=== PATIENT | male | born 1955 | race Caucasian/White ===

== ENCOUNTER 2017-09-28 14:06 | Inpatient (IN) | payer MEDICARE ==
[~2017-09-28] VITALS: Ht 180.3 cm; Wt 93.0 kg
--- NOTE | ~2017-09-28 | PR ---
[place], [place] PROGRESS NOTE NAME: MARIA A OJEDA UNIT #: [id number] ROOM: 310 DOCTOR: CHARLIE ERAZO MD BIRTHDATE: [birth year] DOS: 10/01/2017 CHIEF COMPLAINT: "Morning, is it breakfast?" SUMMARY OF THE VISIT: The patient was interviewed as he continued to pace up and down the jordan. This has been an ongoing issue with him. He did not make eye contact. He remains disheveled and unkempt. His responses tended to be very short and simple and at times avoidant from the questions asked. There is an air of paranoia and suspiciousness and he does not always answer the question. Staff report similar behavior and he is rather avoidant of [id number]-[id number] contact. MENTAL STATUS: He is alert and oriented to person, place, not necessarily time. Mood does seem to be fairly euthymic. Affect appropriate. There is no harlan or hypomania. There is gross psychosis present. Short term memory, long-term memory and intermediate for the most part are intact. PLAN: I will maintain his current dose of Navane as well as the Cogentin. I need to find out when he received his last Invega injection to determine whether or not we need to reload him currently. We will continue to attempt to engage him in individual and tao milieu activity with the plan to return to the detention when stable. CHARLIE ERAZO MD CM:PNTRANS [id number] CHARLIE ERAZO MD 10/01/17 0953 interface
--- NOTE | ~2017-09-28 | PR ---
[place], [place] PROGRESS NOTE NAME: MARIA A OJEDA UNIT #: [id number] ROOM: 310 DOCTOR: CHARLIE ERAZO MD BIRTHDATE: [birth year] DOS: 10/02/2017 CHIEF COMPLAINT: "I think I am feeling better." SUMMARY OF THE VISIT: The patient was interviewed actually in the dining area where he was sitting for a change. He continues, however, throughout the day to walk up and down the hallway. When asked if he was feeling any less restless, he did nod in approval. He reports that he is tolerating the current medication regimen well and is anxious to be able to leave the hospital shortly. MENTAL STATUS: He is alert and oriented to person, place, very approximate to time. Mood does seem to be trending towards euthymia. Affect is more appropriate. There are no symptoms of harlan or hypomania. He remains somewhat delusional and paranoid, but does redirect. Memory for the most part is intact. PLAN: I will go ahead and increase the Cogentin from 1 mg twice a day to 1 mg 3 times a day to see if we can impact even more positively on his akathisia. We will maintain his Navane. We will load him with Invega Sustenna 234 mg and plan to return him to his [facility] environment when he is stable. CHARLIE ERAZO MD CM:PNTRANS [id number] CHARLIE ERAZO MD 10/02/17 0836 interface
--- NOTE | ~2017-09-28 | PR ---
[place], [place] PROGRESS NOTE NAME: MARIA A OJEDA UNIT #: [id number] ROOM: 312 DOCTOR: CHARLIE ERAZO MD BIRTHDATE: [birth year] DOS: 10/03/2017 CHIEF COMPLAINT: "Yeah, all you need to do is to call the snf and they will send somebody to pick me up." SUMMARY OF THE VISIT: The patient was interviewed as he continued to pace in the jordan. This has been his total presentation since he has been here as he continues to pace back and forth. He did stop long enough to engage in conversation with me and did report that he is feeling better. He still notes, however, a restless feeling that is lessening as I have adjusted the Cogentin. He is much more goal directed in his thinking and was not bizarre or paranoid and was able to actually engage in meaningful conversation with me. Other than the restlessness, he denies any other side effects. I see no sedation, somnolence, or any other extrapyramidal symptoms. There is no tardive dyskinesia noted. MENTAL STATUS: He is alert and oriented. Mood does seem to be trending towards euthymia. Affect is more appropriate. There is no symptom suggestive of harlan or hypomania. There are no overt auditory hallucinations or visual hallucinations. Memory for the most part is intact. PLAN: I will load him with Invega Sustenna 234 mg IM today. He will get a secondary shot then of 234 mg on 10/30/2017 post-discharge and then q. monthly. I will increase Cogentin from 1 mg 3 times a day to 2 mg twice a day. We will proceed with discharge when psychiatrically stable. CHARLIE ERAZO MD CM:PNTRANS 8 3 CHARLIE ERAZO MD 10/03/17911 interface
--- NOTE | ~2017-09-28 | WRIGHTHP ---
[place], [place] PATIENT HISTORY AND PHYSICAL EXAM NAME: MARIA A OJEDA UNIT #: [id number] ROOM: 310 DOCTOR: CHARLIE ERAZO MD BIRTHDATE: [birth year] DOS: 09/29/2017 INITIAL PSYCHIATRIC EVALUATION. CHIEF COMPLAINT: "Will you get me back to my longterm." HISTORY OF PRESENT ILLNESS: This is a 61-year-old white male who was sent here from [facility]. The patient apparently was living in a longterm in [place], [place] and receiving psychiatric services from [facility]. Per his report and the report in the chart, he has a rather lengthy history of schizophrenia. He did apparently elope the longterm and was found living in a [facility] [place] and taken to the Emergency Room at [facility]. Once there at the Emergency Room, the patient was found to be grossly psychotic. He was very delusional and paranoid additionally. He was rather disheveled and unkempt. His responses to the Emergency Room physicians were at times nonsensical. Because of his gross psychosis and his basic inability to meet his needs it was felt that a restabilization with medication was warranted and he was sent to the [facility] to rule out organic factors, to engage in individual and tao milieu activity and to restabilize on medication. PAST MEDICAL HISTORY: Remarkable for a lengthy history of schizophrenia. Apparently, the patient is receiving long acting Invega Sustenna and has been doing so for some time. He also has a history of hypertension, normocytic anemia, nicotine abuse. MENTAL STATUS: The patient is alert and oriented to person, place, approximate to time. His responses tended to be derailed. He would oftentimes began to answer appropriately and then would go off on a tangent. He talked in a whisper and at times was somewhat more garbled. He had a hard time standing still and even as he stood there talking to me, he shifted from foot to foot. Most of the time that I was on the unit, he is pacing up and down the hallways nonstop. He was not agitated during his conversation with me and was fairly goal directed with those periods of derailment noted. He did not seem to be responding to any type of unforeseen others. There was no symptom suggestive of hypomania or harlan. DIAGNOSES: Chronic paranoid, with acute exacerbation, rule out schizoaffective disorder. PLAN: I have already started him on Navane 10 mg twice a day. Nurses did report he did not sleep well last night, so I will increase this to 10 mg in the morning and 20 mg at bedtime. I will increase his Cogentin from 0.5 mg 3 times a day to 1 mg twice a day to try to lessen some of his akathisia. Routine screening examinations upon admission show him to have a very low vitamin D level of 11.7. I will augment with vitamin D replacement 50,000 International Units weekly. Because he is having some issues with sleep and is not the best historian, I will go ahead and start him on Remeron 15 mg at bedtime as a nonaddicting agent that will aid sleep. It will also help improve his appetite and stabilize his mood. We will attempt to engage him in individual and tao milieu activity with the ultimate plan to return back to his longterm in [place], [place] PATIENT HISTORY AND PHYSICAL EXAM NAME: MAIRA A OJEDA UNIT #: [id number] ROOM: 310 DOCTOR: CHARLIE ERAZO MD BIRTHDATE: [birth year] [place] when stable. CHARLIE ERAZO MD CM:HISPHYS:PATIENT HISTORY AND PHYSICAL EXAMINATION [phone] CHARLIE ERAZO MD 09/29/17 1002 interface
--- NOTE | ~2017-09-28 | DS ---
[place], [place] DISCHARGE SUMMARY NAME: MARIA A OJEDA UNIT #: [id number] ROOM: 312 DOCTOR: CHARLIE ERAZO MD BIRTHDATE: [birth year] DOS: 10/04/2017 CHIEF COMPLAINT: "Will you get me back to my care home." HISTORY OF PRESENT ILLNESS: This is a 61-year-old white male who was sent here from [facility]. The patient apparently was living in a care home in the [facility] and was receiving psychiatric services from [facility]. The patient has a lengthy history of schizophrenia and has been receiving Invega Sustenna for some time. Apparently, the patient eloped from the care home and was found in a [facility] [place] and from there, then taken to [place]. Once in the emergency room at [place], he was found to be very paranoid and delusional. He was very disheveled and unkempt. He was very nonsensical. It was felt that he would benefit from restabilization on medication before being sent back to his care home. He was admitted now to rule out organic factors and to restabilize. PAST MEDICAL HISTORY: Remarkable for the lengthy history of schizophrenia as well as hypertension, normocytic anemia and nicotine abuse. SUMMARY OF HOSPITAL COURSE: The patient was admitted to the unit where he was found to be grossly disheveled, unkempt and very delusional. He was started on Navane 10 mg twice daily, which was then increased to 10 mg in the morning and 20 mg at night. He did have marked akathisia, so his Cogentin was increased from 0.5 mg 3 times a day, ultimately to 2 mg twice a day. His vitamin D level on admission was low at 11.7, so he was started on vitamin D replacement 50,000 international units weekly. There was a definite depressive component to his symptoms, so he was started on Remeron 15 mg at bedtime. He was given Risperdal at first to make certain he did re-tolerate it and he did and was then subsequently loaded just before discharge with Invega Sustenna 234 mg IM. He tolerated these medicines well. There were no extrapyramidal symptoms, tardive dyskinesia or any other side effects. His psychosis cleared and he was able to engage more readily in normal conversation. He voiced willingness and readiness to return back to the care home. He was discharged then on October 04 to return back to the care home. He will have followup there by the physician of record medically and by [facility] for psychiatric followup. MENTAL STATUS AT DISCHARGE: The patient is alert and oriented. Mood was strongly trending towards euthymia. Affect was appropriate. There were no symptoms of harlan or hypomania. There were no overt auditory or visual hallucinations. No delusions, no paranoia. Memory was fairly intact. FINAL DIAGNOSIS: Schizoaffective disorder. PLAN: All of his prescriptions except the vitamin D have been e-scribed to his pharmacy. Vitamin D was printed and will be sent with him. Aftercare will be through [facility]. [place], [place] DISCHARGE SUMMARY NAME: MARIA A OJEDA UNIT #: [id number] ROOM: 312 DOCTOR: CHARLIE ERAZO MD BIRTHDATE: [birth year] CHARLIE ERAZO MD CM:DISCHARG CHARLIE ERAZO MD 10/04/1736 interface
[2017-09-28] MEDS ORDERED: INVEGA SUSTENN234 MG IM (16:32)
[2017-09-28] MEDS ORDERED: RISPERDAL3 M1 PO (16:34)
[2017-09-28] MEDS ORDERED: COGENTIN0.5 MG PO (16:35)
[2017-09-28] MEDS ORDERED: RAMIPRIL10 MG PO (16:37)
--- NOTE | 2017-09-28 18:11 | NUR ---
ADMISSION ORDER RECEIVED FROM DR. ERAZO. HOME MEDICATIONS VERIFIED WITH PHARMACY, GUARDIAN, AND ENGINEERING TECHNOLOGY INSTRUCTOR.
--- NOTE | 2017-09-28 22:00 | NUR ---
MARIA A OJEDA a 61 year old M admitted via ambulance from the ADMITTING as a VOLUNTARY admission BY GUARDIAN. Arrived on unit at 2200. ALLERGIES: HALDOL. Vital signs are: 98.2-70-17 123/81. The guardian provided verbal consent for the following forms with stated understanding: Authorization For The Release of Medical Information, Clothing List, Consent to Voluntary Admission and Hospitalization, Consent and Release Forms/Receipt of Rights, Acknowledgement of Advance Directive Information, Behavioral Health Consent Form, and Informed Consent of Medications. Admitted under the services of Dr. KACEY BRUMFIELD,[facility]. A search was conducted and hazardous articles were removed. Client was oriented to the unit. BRYANT RAJPUT
[2017-09-28 22:37] VITALS: BP 123/81
--- NOTE | 2017-09-28 23:34 | NUR ---
CALL PLACED TO RESIDENT STADIUM MANAGER TO UPDATE OF NEW PT ARRIVAL.
--- NOTE | 2017-09-29 01:00 | NUR ---
DR REENA BARNES ON UNIT TO ASSESS PT
--- NOTE | 2017-09-29 02:00 | NUR ---
DURING DR BARNES'S ASSESSMENT, LEFT LOWER LEG WAS NOTED TO BE EDEMATOUS. NO REDNESS NOTED. PT DENIED ANY DISCOMFORT OR PAIN. PT GUARDED WITH HIS LEGS. WHEN THE DR TRIED TO PULL HIS PANT LEGS UP TO ASSESS HIS LEGS THE PT WOULD PULL HIS PANT LEGS BACK DOWN AND TELL THE DR "MY LEGS ARE FINE". RINGS AND BRACELETS REMOVED FROM PT. NEW ORDER RECEIVED FOR AN ULTRASOUND.
--- NOTE | 2017-09-29 04:53 | NUR ---
24 HR chart check completed.
--- NOTE | 2017-09-29 05:45 | NUR ---
PT SLEPT APPROXIMATELY 4 HOURS THIS SHIFT. NO S/S OF DISTRESS NOTED. NO C/O PAIN.
[2017-09-29 06:27] LABS: BASO % 0.3 % (0.0-1.0); EOS # 0.1 10*3/uL (0.0-0.4); EOS % 3.2 % (1.0-4.0); HEMATOCRIT 35.1 % (42.0-52.0); HEMOGLOBIN 11.9 g/dl (14.0-18.0); LYMPH % 29.9 % (27.0-41.0); MEAN CELL VOLUME 86.9 fl (80.0-94.0); MEAN CORPUSCULAR HGB 29.5 pg (27.0-31.0); MEAN CORPUSCULAR HGB CONC 33.9 g/dl (33.0-37.0); MEAN PLATELET VOLUME 11.1 fl (9.6-12.3); MONO # 0.3 10*3/uL (0.1-1.0); MONO % 9.3 % (3.0-9.0); PLATELET COUNT AUTOMATED 196 10*3/uL (130-400); RED BLOOD COUNT 4.04 10*6/uL (4.50-5.90); RED CELL DISTRI WIDTH 15.9 % (0-14.5); WHITE BLOOD COUNT 3.5 10*3/uL (4.8-10.8)
[2017-09-29 07:29] LABS: CHLORIDE 110 mmol/L (98-107); POTASSIUM 4.6 mmol/L (3.5-5.1); SODIUM 143 mmol/L (136-145)
[2017-09-29 07:50] VITALS: BP 115/71
[2017-09-29 07:51] LABS: ALBUMIN 3.5 gm/dl (3.1-4.5); ALKALINE PHOSPHATASE 51 U/L (45-117); BUN 23 mg/dl (7-24); CHOLESTEROL 133 mg/dL (<200); CREATININE 1.15 mg/dL (0.70-1.30); HDL CHOLESTEROL 69 mg/dl (40-60); LDL CHOLESTEROL 54 mg/dL (9-159); SGOT/AST 16 IU/L (3-35); SGPT/ALT 19 U/L (12-78); TOTAL PROTEIN 6.9 gm/dL (6.4-8.2); TRIGLYCERIDES 49 mg/dl (<150); VLDL CHOLESTEROL 10 mg/dL (6-40)
--- NOTE | 2017-09-29 10:22 | NUR ---
LIBERTY rec'd pc back from CORA Stevens, who states pt. to retun to grp. home.
--- NOTE | 2017-09-29 11:49 | NUR ---
DR. MARTINES AND DR. ESCOBAR ON UNIT TO SEE PT AT THIS TIME, MADE AWARE PT REFUSED ULTRASOUND TO LLE.
--- NOTE | 2017-09-29 15:30 | NUR ---
PT IS ALERT AND ORIENTED TO PERSON, PLACE AND TIME. MEMORY APPEARS INTACT. RESPIRATIONS EASY ON ROOM AIR. MOOD IS ANGRY/IRRITABLE AT TIMES. AFFECT IS FLAT. SPEECH IS SLOW BUT COHERENT, ABLE TO MAKE NEEDS KNOWN. PT DENIES HALLUCINATIONS, NO RESPONSE TO INTERNAL STIMULI NOTED. PT DENIES SI/HI. PT DISPLAYS HYPOMANIC BEHAVIOR, PACING HALLWAYS CONTINUALLY THROUGHOUT THE SHIFT. STAFF HAS ATTEMPTED TO ENGAGE PT IN CONVERSATION, PT GIVES SHORT ONE TO TWO WORD ANSWERS OR STATES "WELL THAT'S A STUPID QUESTION". MEDICATION COMPLIANT WITHOUT DIFFICULTY. PT IS AMBULATORY WITH STEADY GAIT, INDEPENDENT WITH ADLS, SHOWERED AND SHAVED THIS AM WITH SUPERVISION FOR SHAVING, CONTINENT OF BOWEL AND BLADDER. DISPLAYS GOOD APPETITE WITH ADEQUATE FLUID INTAKE. Q15 MIN SAFETY CHECKS MAINTAINED, REFER TO [facility] FLOWSHEET FOR SPECIFIC MONITORING.
--- NOTE | 2017-09-29 18:54 | NUR ---
SHIFT CHART CHECK COMPLETED. UNABLE TO OBTAIN URINE SAMPLE THIS SHIFT, PT REFUSES TO PROVIDE.
[2017-09-29 20:00] VITALS: BP 100/62
--- NOTE | 2017-09-30 00:15 | NUR ---
24 HR chart check completed.
--- NOTE | 2017-09-30 06:45 | NUR ---
PT HAS BEEN OBSERVED ON Q 15 MIN CHECKS & HAS SLEPT QUIETLY PAST 2215.
[2017-09-30 07:46] VITALS: BP 102/66
--- NOTE | 2017-09-30 07:55 | NUR ---
PT PROVIDED WITH URINE SPECIMEN CUP, PT STATES HE WILL PROVIDE URINE SAMPLE WHEN HE HAS TO GO.
--- NOTE | 2017-09-30 09:41 | NUR ---
URINALYSIS OBTAINED VIA CLEAN CATCH AT THIS TIME, LABELED AND SENT TO LAB.
[2017-09-30 09:48] LABS: BILIRUBIN NEGATIVE (NEGATIVE); BLOOD NEGATIVE (NEGATIVE); CLARITY CLEAR (CLEAR); COLOR YELLOW (YELLOW); GLUCOSE NEGATIVE (NEGATIVE); KETONE NEGATIVE (NEGATIVE); LEUKO ESTERASE NEGATIVE (NEGATIVE); NITRITE NEGATIVE (NEGATIVE); SPECIFIC GRAVITY <= 1.005 (1.005-1.030); UROBILINOGEN 0.2 E.U./dl (0.2-1.0)
--- NOTE | 2017-09-30 10:10 | NUR ---
DR. ALAN AND DR. ESCOBAR ON UNIT TO SEE PT AT THIS TIME.
--- NOTE | 2017-09-30 15:28 | NUR ---
PT IS ALERT AND ORIENTED TO PERSON, PLACE, TIME. UNSURE OF ORIENTATION TO SITUATION PT DOES NOT ENGAGE IN CONVERSATION WITH STAFF AND WHEN PROMPTED GIVES SHORT ONE WORD RESPONSES. MEMORY APPEARS TO BE INTACT. RESPIRATIONS EASY ON ROOM AIR. MOOD IS LABILE, AFFECT IS FLAT. SPEECH IS SOFT, SLURRED/GARBLED AT TIMES, ABLE TO VERBALIZE NEEDS WITHOUT DIFFICULTY. PT DENIES SI/HI. PT NOTED TO BE RESPONDING TO INTERNAL STIMULI, TALKING TO UNSEEN OTHERS, CONVERSATION WITH UNSEEN OTHERS KEPT LOW IN VOLUME, DIFFICULT TO UNDERSTAND WHAT IS BEING SAID BY THE PT AND PT DOES NOT WISH TO ELABORATE. PT NOTED TO BE AGITATED THIS MORNING IN RESPONSE TO AUDITORY HALLUCINATIONS/DELUSIONS, PT DID NOT WISH TO DISCUSS WITH STAFF, PT WAS ABLE TO CALM SELF WITHOUT NEED FOR PRN INTERVENTION. PT IS AMBULATORY WITH STEADY GAIT, INDEPENDENT WITH ADLS, SHOWERED THIS AM, CONTINENT OF BOWEL AND BLADDER, FEEDS SELF, GOOD APPETITE WITH ADEQUATE FLUID INTAKE. NO DISTRESS NOTED. Q15 MIN SAFETY CHECKS MAINTAINED, REFER TO [facility] FLOWSHEET FOR SPECIFIC MONITORING.
--- NOTE | 2017-09-30 16:18 | NUR ---
PT ENTERED DINING ROOM WHILE PEERS WATCHING FOOTBALL GAME, THIS NURSE IN DAYROOM WITH PTS FOR SUPERVISION, THIS NURSE NOTED MARIA A TO BE EXHIBITING EVIDENCE OF AUDITORY, VISUAL AND TACTILE STIMULI. PT TALKING TO UNSEEN OTHERS UNDER HIS BREATH, RAPID EYE DARTING AND PICKING/GESTURING INTO THE AIR NOTED. PT REMAINED CALM, SAT DOWN AND WATCHED TV.
--- NOTE | 2017-09-30 16:48 | NUR ---
SHIFT CHART CHECK COMPLETED.
[2017-09-30 20:04] VITALS: BP 103/59
--- NOTE | 2017-09-30 21:09 | NUR ---
24 HR chart check completed.
--- NOTE | 2017-10-01 05:10 | NUR ---
PT HAS BEEN OBSERVED ON Q 15 MIN CHECKS & HAS SLEPT QUIETLY THROUGHOUT THE SHIFT PAST 2129.
[2017-10-01 08:09] VITALS: BP 106/70
--- NOTE | 2017-10-01 09:05 | NUR ---
PHYSICAL THERAPY PAtient is 100 % (I) all functional mobility throughout facility. No PT skills/needs. D/C PT at this time, patient agrees. Thank you for this referral. Mily Bobo,PT
--- NOTE | 2017-10-01 09:11 | NUR ---
Occupational Therapy referral received and screen completed this date [facility]. Patient was pacing the jordan with forward head/neck position, good balance and independent functional mobility. Patient admits to independence in all ADLs and no need for OT at this time. D/C OT at this time. Thank you for this referral. Ignacia Santoyo OTR/l
--- NOTE | 2017-10-01 11:22 | NUR ---
Goals/Exercise/Positive Thoughts & Affirmations Patient did not attend group. Patient paces halls and enters and exits activity room throughout group. Patient will not participate.
--- NOTE | 2017-10-01 14:09 | NUR ---
LIBERTY met with Bulmaro Brown and pt. pt. agree's to live elsewhere due to his home being "unlivable" at this time. LIBERTY met with Stephanie and Dr. Chamorro to discuss d/c plans. Dr. Chamorro does deem Santos "incompetent" at this time and needs a Guardian, which pt. according to Dr. Chamorro is in agreement with. LIBERTY called and notified Gisella Villa of the need to file Guardianship and will forward this request when LIBERTY receives Dr. Chamorro evaluation later today or tomorrow.
--- NOTE | 2017-10-01 14:13 | NUR ---
LIBERTY spoke with CORA Brown who states that there may be a Boarding Home in [place], [place] who may take pt. but needs to pass this request along to Rodney Meyers who will need to do the request for the boarding home, Rodney is pt's CM thru the waiver program. In the meanwhile, pt. ,may need a 30 day rehab until boarding home has opening or if there is an open by d/c, pt. will be admitted directly there from the [facility]. CM to talk with Rodney Staley today to make the referral for the baording home.
--- NOTE | 2017-10-01 14:33 | NUR ---
APS, Gisella Villa, is concerned that an Emergency Guardianship is not going to be filed and it is just going to be for Guardianship due to pt's hx of changing his mind. SW let her know that SW had talk with Dr. Chamorro about filing an Emergency Guardianship, but at this point in time Dr. Chamorro does not feel that an Emergcency Guardianship is warranted. SW will fax Guardianship paperwork to Gisella Villa if received before 3pm otherwise will be forwarded tomorrow.
--- NOTE | 2017-10-01 15:06 | NUR ---
Positive Self-Talk Patient did not attend group today. Patient walks the jordan,entering and exiting activity room but refuses to stay for group
--- NOTE | 2017-10-01 15:16 | NUR ---
pt continues to pace the unit, alert and oreinted x 1. pt. d/c plan to return to [facility]. home,. Dr. Mcclelland possibly by end of week.
--- NOTE | 2017-10-01 16:14 | NUR ---
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
[2017-10-01 19:46] VITALS: BP 121/70
--- NOTE | 2017-10-02 06:19 | NUR ---
24 HR chart check completed.
--- NOTE | 2017-10-02 06:23 | NUR ---
PT HAS BEEN OBSERVED ON Q 15 MIN CHECKS & HAS SLEPT QUIETLY THROUGHOUT THE SHIFT PAST 2214.
[2017-10-02 07:54] VITALS: BP 109/74
--- NOTE | 2017-10-02 08:30 | NUR ---
MINISTERIO COOK SEEING EYE DOG TEACHER ON UNIT TO SEE PATIENT.
--- NOTE | 2017-10-02 10:15 | NUR ---
Rec'd pc back from pt guardinila Robbins, her fax number is [phone]. paperwork to be faxed upon d/c. no concerns at this time.
--- NOTE | 2017-10-02 11:25 | NUR ---
pt continues to pace the unit. pt is alert and oriented x 3. pt. states "When will I go home"? SW let him know he will be here a few days yet. pt. states "Huh".
--- NOTE | 2017-10-02 11:28 | NUR ---
Holiday remenissing/orientation and goals Patient attended and actively participated in group. Patient able to state goal for today and engage in conversation from a distance. Patient became more engaged and spoke freely when AC sat closer due to low voice tone. Patient laughed and smiled throughout group. Patient reports no delussions throughout group. Patient did not displays any s/s of visual or auditory hallucinations during group however patient noted to be speaking to voices after group when pacing the hallways. Patient did attend entire group without leaving.
--- NOTE | 2017-10-02 13:11 | NUR ---
PATIENT IS ALERT TO PERSON
--- NOTE | 2017-10-02 13:14 | NUR ---
PATIENT IS ALERT AND ORIENTED TO PERSON, PLACE AND TIME. MOOD IS DEPRESSED/FLAT AFFECT, THOUGHT PROCESS IS CONFUSED AT TIMES. HAS AUDITORY HALLUCINATIONS, TALKING TO UNSEEN OTHERS. INDEPENDENT WITH ACTIVITIES OF DAILY LIVING. AMBULATES WITH STEADY GAIT; PACES THE HALLWAY FREQUENTLY, MUMBLE TO SELF. GOOD APPETITE WITH ADEQUATE FLUIDS. MEDICATION COMPLIANT WITH EDUCATION PROVIDED. Q 15 MINUTE SAFETY CHECKS. CONTINUE TO MONITOR FOR INCREASED PARANOIA AND REDIRECT NEEDED.
--- NOTE | 2017-10-02 15:07 | NUR ---
Coping skills Patient present and actively participated in group. Patient appropriately asked/answered questions throughout half of group. When other males started leaving the room patient politely asked to leave also. Patient reports no halucinations throughout group and was able to identify triggers and coping skills.
--- NOTE | 2017-10-02 16:11 | NUR ---
Shift chart check completed.
[2017-10-02 20:08] VITALS: BP 101/68
--- NOTE | 2017-10-02 21:32 | NUR ---
24 HR chart check completed.
--- NOTE | 2017-10-03 06:33 | NUR ---
PT HAS BEEN OBSERVED ON Q 15 MIN CHECKS & HAS SLEPT QUIETLY THROUGHOUT THE SHIFT PAST 2044. SHOWERED INDEPENDENTLY THIS AM.
[2017-10-03 07:54] VITALS: BP 120/83
--- NOTE | 2017-10-03 08:48 | NUR ---
PATIENT'S BP IS 120/83, PATIENT REFUSED LISINOPRIL THIS MORNING X 2 ATTEMPTS.
--- NOTE | 2017-10-03 09:38 | NUR ---
IVNVEGA SUSTAINA 234MG GIVEN IM TO RIGHT DELTOID, PATIENT TOLERATED WELL.
--- NOTE | 2017-10-03 11:13 | NUR ---
Stress/anger management, goals and orientation/trivia Patient attended group with limited participation. Patient able to state positive goal for today when called upon however limited participation in other discussions. Patient displays no s/s of hallucinations and no reports of SI.
--- NOTE | 2017-10-03 11:54 | NUR ---
LIBERTY spoke with Vidal Dover and Rodney Go CM in regards to pt. d/c tomorrow. pt. CM will be here to pick pt. up at 1pm. Rodney states "I will let the dietary manager at [facility]. know.
--- NOTE | 2017-10-03 13:52 | NUR ---
PATIENT IS ALERT AND ORIENT TO PERSON, PLACE AND TIME; ABLE TO ANSWER QUESTIONS APPROPRIATELY. RESPIRATION ARE EASY, NON-LABORED ON ROOM AIR. DENIES ANY HALLUCINATIONS, DELUSIONS, HI/SI OR PAIN. PATIENT AMBULATES FREQUENTLY IN HALLWAY, PACING WITH STEADY GAIT. RESPONDING TO INTERNAL STIMULI, AUDITORY HALLUCINATINS NOTED, TAKING TO UNSEEN OTHERS. MEDICATION COMPLIANT WITH MEDICATION EDUCATION. INDEPENDENT WITH ACTIVITIES OF DAILY LIVING, SET UP FOR MEALS, CONTINENT OF BOWEL AND BLADDER. Q 15 MINUTE SAFETY CHECKS MAINTAINED. MONITOR BEHAVIORS AND REDIRECT NEEDED.
--- NOTE | 2017-10-03 15:03 | NUR ---
Games and relaxation group Patient attended and actively participated in group. Patient engaged in card and ring toss games " stating Im good at this stuff." Patient pleased with efforts being made. Patient reports no SI or hallucinations however patient noted to be speaking to hallucinations while sitting away from group.
--- NOTE | 2017-10-03 15:59 | NUR ---
Shift chart check completed.
[2017-10-03 20:13] VITALS: BP 107/57
--- NOTE | 2017-10-03 21:00 | NUR ---
PACED THE HALLWAYS TILL SNACK CAME. ATE THEN WENT TO BED. EASILY AWAKENED FOR PM MEDICATIONS. MEDICATION EDUCATION DONE. DECREASED PARANOIA NOTED. DID LOOK AT THIS NURSE WHEN TALKING.
--- NOTE | 2017-10-04 04:27 | NUR ---
24 HR chart check completed.
--- NOTE | 2017-10-04 06:10 | NUR ---
SLEPT WELL PAST 2100 PM
[2017-10-04 08:05] VITALS: BP 108/76
--- NOTE | 2017-10-04 08:14 | NUR ---
DR. MIRANDA NOTIFIED VIA TELEPHONE OF DISCHARGE FOR TODAY BY LUCERO
[2017-10-04] MEDS ORDERED: Vitamin D PO (08:19)
[2017-10-04] MEDS ORDERED: BENZTROPINE MESY1 MG PO (08:19)
[2017-10-04] MEDS ORDERED: MIRTAZAPINE15 M2 PO (08:19)
[2017-10-04] MEDS ORDERED: NAVANE5 MG PO ×2 (08:19)
[2017-10-04] MEDS ORDERED: INVEGA SUSTENN234 MG IM (08:19)
--- NOTE | 2017-10-04 09:00 | NUR ---
MINISTERIO COOK CNP OF [facility] HERE TO SEE PT AT THIS TIME. AWARE OF DISCHARGE FOR TODAY.
--- NOTE | 2017-10-04 10:27 | NUR ---
pt asked what time he is leaving and how he was going to get back to [facility]. Home. SW let him know that his CM-Dam Donavan will be here to pick him up and take him home. pt. smiled.
--- NOTE | 2017-10-04 10:59 | NUR ---
PT IS ALERT AND ORIENTED TO PERSON, PLACE, TIME AND SITUATION. RESPONDS TO QUESTIONS APPROPRIATELY. RESPIRATIONS EASY ON ROOM AIR. MOOD IS STABLE, AFFECT IS FLAT. SPEECH IS WNL AND COHERENT, ABLE TO VERBALIZE NEEDS. PT DENIES SI/HI. PT DENIES HALLUCINATIONS, HOWEVER PT CONTINUES TO NOTED BY STAFF TO BE TALKING TO UNSEEN OTHERS. PT AMBULATES HALLWAYS FREQUENTLY. NO ELOPEMENT ATTEMPTS. MED COMPLIANT WITH EXCEPTION OF LISINOPRIL, BP 108/78 - PT STATES "I DONT NEED BP MEDICINE." NO DISTRESS NOTED. INDEPENDENT WITH ADLS. VERBALIZING READINESS FOR DISCHARGE. Q15 MIN MONITORING CONTINUES, REFER TO U FLOWSHEETS FOR SPECIFIC DOCUMENTATION.
--- NOTE | 2017-10-04 11:12 | NUR ---
Goals,Exercise and Trivia Patient did not attend group. Patient pacing halls as his usual manner. Patient encouraged to come to group but patient refused and kept walking
--- NOTE | 2017-10-04 13:05 | NUR ---
PT DISCHARGED BACK TO [facility] WITH INVESTMENT CONSULTANT BEN, VIA BEN'S PRIVATE VEHICLE. ALL DISCHARGE INSTRUCTIONS AND MEDICATION LIST PROVIDED TO INVESTMENT CONSULTANT. COPIES ON UNIT TO BE FAXED TO LEGAL GUARDIAN. PAPER SCRIPT FOR VITAMIN D SENT WITH PT/INVESTMENT CONSULTANT. ALL PERSONAL BELONGINGS WERE SENT WITH THE PT. PT LEFT THE UNIT IN STABLE CONDITION AT 1305.
--- NOTE | 2017-10-05 11:35 | NUR ---
Electroencephalogram Technologist Note: Discharge information packet faxed to guardian today.
== END 2017-10-04 13:05 | disposition home or self-care (01) | DRG 885 ==
LOC: 3N 14:06
PROVIDERS: ADMIT Psychiatry & Neurology Psychiatry
DX: F20.0 Paranoid schizophrenia (principal); D64.9 Anemia, unspecified; I10 Essential (primary) hypertension; M79.89 Other specified soft tissue disorders; D72.819 Decreased white blood cell count, unspecified; E66.3 Overweight; E55.9 Vitamin D deficiency, unspecified; F17.210 Nicotine dependence, cigarettes, uncomplicated; F32.9 Major depressive disorder, single episode, unspecified; Z90.49 Acquired absence of other specified parts of digestive tract; Z82.49 Family history of ischemic heart disease and other diseases of the circulatory system; Z88.8 Allergy status to other drugs, medicaments and biological substances; Z79.899 Other long term (current) drug therapy; Z71.6 Tobacco abuse counseling; Z68.28 Body mass index [BMI] 28.0-28.9, adult